=== PATIENT | male | born 1990 | race African-American/Black ===

== ENCOUNTER 2020-12-18 13:27 | Inpatient (IN) | payer OTHER ==
[2020-12-18 14:13] VITALS: BMI 22.8
[2020-12-18] MEDS ORDERED: ONDANSETRON *ODT* 4 MG TABLET SL PRN (14:30)
[2020-12-18] MEDS ORDERED: IBUPROFEN 400 MG TABLET (FP) PO PRN (14:30)
[2020-12-18] MEDS ORDERED: MENTHOL/PHENOL 1 EACH UD MM PRN (14:30)
[2020-12-18] MEDS ORDERED: ACETAMINOPHEN 325 MG TABLET (FP) PO PRN ×2 (14:30)
[2020-12-18] MEDS ORDERED: MAGNESIUM HYDROX 2400MG/30ML ORAL SUSPENSION 30 ML CUP PO PRN (14:30)
[2020-12-18] MEDS ORDERED: NICOTINE POLACRILEX 2 MG GUM BUC PRN (14:30)
[2020-12-18] MEDS ORDERED: MAGNESIUM CITRATE 300 ML BOTTLE PO PRN (14:30)
[2020-12-18] MEDS ORDERED: BISMUTH SUBSALICYLATE 262 MG/15 ML BTL PO PRN (14:30)
[2020-12-18] MEDS ORDERED: METHOCARBAMOL 500 MG TABLET PO PRN (14:30)
[2020-12-18] MEDS ORDERED: MAG HYDROX/AL HYDROX/SIMETH 30 ML UNIT-DOSE CUP PO PRN (14:30)
[2020-12-18] MEDS ORDERED: chlordiazePOXIDE HCL 25 MG CAPSULE PO PRN (14:30)
[2020-12-18] MEDS: chlordiazePOXIDE HCL 25 MG CAPSULE PO SCH ×2 (18:09→22:59)
[2020-12-18] MEDS: hydrOXYzine PAMOATE 25 MG CAPSULE (FP) PO SCH ×2 (18:11→23:01)
[2020-12-18] MEDS: THIAMINE HCL 100 MG TABLET (FP) PO SCH (23:00)
[2020-12-18] MEDS: MELATONIN 5 MG TABLETS PO SCH (23:01)
[2020-12-19] MEDS: chlordiazePOXIDE HCL 25 MG CAPSULE PO SCH ×4 (05:35→22:44)
[2020-12-19] MEDS: hydrOXYzine PAMOATE 25 MG CAPSULE (FP) PO SCH ×5 (05:35→22:44)
[2020-12-19] MEDS: PRENATAL VITAMINS W/ FOLIC ACID TABLET (FP) PO SCH (10:28)
[2020-12-19] MEDS: NICOTINE 7 MG/24 HOURS TOPICAL PATCH TD SCH (10:28)
[2020-12-19 13:12] LABS: POTASSIUM 3.7 mmol/L (3.5-5.1)
[2020-12-19 13:19] LABS: BLOOD UREA NITROGEN 12.4 mg/dL (7-18)
[2020-12-19 13:21] LABS: ALBUMIN 3.3 g/dl (3.4-5.0); BILIRUBIN,TOTAL 0.8 mg/dL (0.2-1); CALCIUM 8.3 mg/dL (8.5-10.1); TOT PROT 8.3 g/dl (6.4-8.2)
[2020-12-19 13:28] LABS: HEMATOCRIT 37.3 % (35.4-49); HEMOGLOBIN 12.4 GM/dL (11.7-16.9); MCH 26.7 pg (25.7-33.7); MCHC 33.3 g/dl (32.0-35.9); MEAN CELL VOLUME 80.1 fl (80-96); MEAN PLT VOLUME 8.6 fl (7.5-11.1); PLATELET COUNT 119 K/MM3 (134-434); RBC 4.65 M/mm3 (4.00-5.60); WHITE BLOOD COUNT 3.4 K/mm3 (4.0-10.0)
[2020-12-19 14:11] LABS: HIV INTERPRETATION NEGATIVE (NEGATIVE)
[2020-12-19] MEDS: THIAMINE HCL 100 MG TABLET (FP) PO SCH (22:44)
[2020-12-19] MEDS: MELATONIN 5 MG TABLETS PO SCH (22:44)
[2020-12-20] MEDS: hydrOXYzine PAMOATE 25 MG CAPSULE (FP) PO SCH ×5 (05:16→22:30)
[2020-12-20] MEDS: chlordiazePOXIDE HCL 25 MG CAPSULE PO SCH ×2 (05:16→10:27)
[2020-12-20] MEDS: PRENATAL VITAMINS W/ FOLIC ACID TABLET (FP) PO SCH (10:27)
[2020-12-20] MEDS: NICOTINE 7 MG/24 HOURS TOPICAL PATCH TD SCH (10:27)
[2020-12-20] MEDS ORDERED: LORazepam 1 MG TABLET PO PRN (11:58)
[2020-12-20] MEDS ORDERED: FLU VACCINE (FLULAVAL) PF 60 MCG/0.5 ML SYRINGE 2020-2021 IM ONE (12:00)
[2020-12-20] MEDS ORDERED: MASKS NR ONE (16:26)
[2020-12-20] MEDS: LORazepam 2 MG TABLET PO SCH ×2 (18:08→22:30)
[2020-12-20] MEDS: THIAMINE HCL 100 MG TABLET (FP) PO SCH (22:30)
[2020-12-20] MEDS: MELATONIN 5 MG TABLETS PO SCH (22:30)
[2020-12-21] MEDS ORDERED: chlordiazePOXIDE HCL 10 MG CAPSULE PO PRN
[2020-12-21] MEDS ORDERED: chlordiazePOXIDE HCL 10 MG CAPSULE PO SCH (05:00)
[2020-12-21] MEDS: hydrOXYzine PAMOATE 25 MG CAPSULE (FP) PO SCH ×5 (05:47→22:17)
[2020-12-21] MEDS: LORazepam 1 MG TABLET PO SCH ×4 (05:48→22:17)
[2020-12-21] MEDS: NICOTINE 7 MG/24 HOURS TOPICAL PATCH TD SCH (11:03)
[2020-12-21] MEDS: PRENATAL VITAMINS W/ FOLIC ACID TABLET (FP) PO SCH (11:03)
[2020-12-21] MEDS: MELATONIN 5 MG TABLETS PO SCH (22:16)
[2020-12-21] MEDS: THIAMINE HCL 100 MG TABLET (FP) PO SCH (22:17)
[2020-12-22] MEDS ORDERED: LORazepam 0.5 MG TABLET PO PRN
[2020-12-22] MEDS ORDERED: chlordiazePOXIDE HCL 10 MG CAPSULE PO SCH (05:00)
[2020-12-22] MEDS: hydrOXYzine PAMOATE 25 MG CAPSULE (FP) PO SCH ×5 (05:33→22:12)
[2020-12-22] MEDS: LORazepam 0.5 MG TABLET PO SCH ×4 (05:33→22:12)
[2020-12-22] MEDS: PRENATAL VITAMINS W/ FOLIC ACID TABLET (FP) PO SCH (10:36)
[2020-12-22] MEDS: NICOTINE 7 MG/24 HOURS TOPICAL PATCH TD SCH (10:37)
[2020-12-22] MEDS: THIAMINE HCL 100 MG TABLET (FP) PO SCH (22:12)
[2020-12-22] MEDS: MELATONIN 5 MG TABLETS PO SCH (22:12)
[2020-12-23] MEDS ORDERED: chlordiazePOXIDE HCL 10 MG CAPSULE PO ONE (05:00)
[2020-12-23] MEDS ORDERED: LORazepam 0.5 MG TABLET PO ONE (05:00)
[2020-12-23] MEDS: hydrOXYzine PAMOATE 25 MG CAPSULE (FP) PO SCH ×2 (05:40→10:52)
[2020-12-23 09:11] VITALS: BP 146/97; PULSE 88; TEMP 97.5
[2020-12-23] MEDS: PRENATAL VITAMINS W/ FOLIC ACID TABLET (FP) PO SCH (10:52)
[2020-12-23] MEDS: NICOTINE 7 MG/24 HOURS TOPICAL PATCH TD SCH (10:52)
== END 2020-12-23 11:15 | disposition other institution (70) | DRG 775 ==
LOC: YASAS 13:27 → Y6N 14:45
PROVIDERS: ADMIT Allergy & Immunology; ATTEND Allergy & Immunology
PROC: HZ2ZZZZ Detoxification Services for Substance Abuse Treatment (ICD-10-PCS; principal; 2020-12-18)
DX: F10.230 Alcohol dependence with withdrawal, uncomplicated (principal); F17.210 Nicotine dependence, cigarettes, uncomplicated; F10.282 Alcohol dependence with alcohol-induced sleep disorder; F10.24 Alcohol dependence with alcohol-induced mood disorder; F29 Unspecified psychosis not due to a substance or known physiological condition; H54.61 Unqualified visual loss, right eye, normal vision left eye; Z59.0 Homelessness; Z56.0 Unemployment, unspecified
CPT/HCPCS: 36415; 80053; 85027; 86780; 87389; 93005; 93010; C9803; G0008; Q2036; U0003

== ENCOUNTER 2020-12-23 11:18 | Inpatient (IN) | payer OTHER ==
[2020-12-23] MEDS ORDERED: guaiFENesin 200 MG/10 ML 10 ML UNIT-DOSE CUPS PO PRN (12:03)
[2020-12-23] MEDS ORDERED: LOPERAMIDE HCL 2 MG CAPSULE PO PRN (12:03)
[2020-12-23] MEDS ORDERED: P-EPHED 60MG/TRIPROLIDI 2.5MG TABLET PO PRN (12:03)
[2020-12-23] MEDS ORDERED: MAGNESIUM HYDROX 2400MG/30ML ORAL SUSPENSION 30 ML CUP PO PRN (12:03)
[2020-12-23] MEDS ORDERED: MENTHOL/PHENOL 1 EACH UD MM PRN (12:03)
[2020-12-23] MEDS ORDERED: MAGNESIUM CITRATE 300 ML BOTTLE PO PRN (12:03)
[2020-12-23] MEDS ORDERED: ACETAMINOPHEN 325 MG TABLET (FP) PO PRN (12:03)
[2020-12-23] MEDS ORDERED: hydrOXYzine PAMOATE 25 MG CAPSULE (FP) PO PRN (12:03)
[2020-12-23] MEDS ORDERED: MAG HYDROX/AL HYDROX/SIMETH 30 ML UNIT-DOSE CUP PO PRN (12:03)
[2020-12-23] MEDS ORDERED: METHOCARBAMOL 500 MG TABLET PO PRN (12:04)
[2020-12-23] MEDS: MINERAL OIL/PETROLAT/WATER TOPICAL CREAM 113 GM JAR TP SCH ×2 (12:50→21:12)
[2020-12-23] MEDS: MELATONIN 5 MG TABLETS PO SCH (21:11)
[2020-12-23] MEDS: THIAMINE HCL 100 MG TABLET (FP) PO SCH (21:11)
[2020-12-24] MEDS: MINERAL OIL/PETROLAT/WATER TOPICAL CREAM 113 GM JAR TP SCH ×2 (10:29→21:35)
[2020-12-24] MEDS: PRENATAL VITAMINS W/ FOLIC ACID TABLET (FP) PO SCH (10:29)
[2020-12-24] MEDS: THIAMINE HCL 100 MG TABLET (FP) PO SCH (21:35)
[2020-12-24] MEDS: MELATONIN 5 MG TABLETS PO SCH (21:35)
[2020-12-25] MEDS: PRENATAL VITAMINS W/ FOLIC ACID TABLET (FP) PO SCH (10:20)
[2020-12-25] MEDS: MINERAL OIL/PETROLAT/WATER TOPICAL CREAM 113 GM JAR TP SCH ×2 (10:21→21:12)
[2020-12-25] MEDS: THIAMINE HCL 100 MG TABLET (FP) PO SCH (21:11)
[2020-12-25] MEDS: MELATONIN 5 MG TABLETS PO SCH (21:11)
[2020-12-26] MEDS ORDERED: cloNIDine HCL 0.1 MG TABLET PO ONE (07:45)
[2020-12-26] MEDS: MINERAL OIL/PETROLAT/WATER TOPICAL CREAM 113 GM JAR TP SCH ×2 (10:18→21:27)
[2020-12-26] MEDS: PRENATAL VITAMINS W/ FOLIC ACID TABLET (FP) PO SCH (10:18)
[2020-12-26] MEDS: MELATONIN 5 MG TABLETS PO SCH (21:26)
[2020-12-26] MEDS: THIAMINE HCL 100 MG TABLET (FP) PO SCH (21:26)
[2020-12-27] MEDS: PRENATAL VITAMINS W/ FOLIC ACID TABLET (FP) PO SCH (10:03)
[2020-12-27] MEDS: MINERAL OIL/PETROLAT/WATER TOPICAL CREAM 113 GM JAR TP SCH ×2 (10:03→21:07)
[2020-12-27] MEDS: THIAMINE HCL 100 MG TABLET (FP) PO SCH (21:06)
[2020-12-27] MEDS: MELATONIN 5 MG TABLETS PO SCH (21:06)
[2020-12-28] MEDS: PRENATAL VITAMINS W/ FOLIC ACID TABLET (FP) PO SCH (10:29)
[2020-12-28] MEDS: MINERAL OIL/PETROLAT/WATER TOPICAL CREAM 113 GM JAR TP SCH ×2 (10:29→21:35)
[2020-12-28 14:53] LABS: POTASSIUM 4.3 mmol/L (3.5-5.1)
[2020-12-28 14:56] LABS: CALCIUM 8.5 mg/dL (8.5-10.1)
[2020-12-28 14:57] LABS: ALBUMIN 3.2 g/dl (3.4-5.0); BLOOD UREA NITROGEN 14.7 mg/dL (7-18)
[2020-12-28 15:00] LABS: CREATININE 1.1 mg/dL (0.55-1.3)
[2020-12-28 15:01] LABS: BILIRUBIN,TOTAL 0.7 mg/dL (0.2-1); TOT PROT 7.5 g/dl (6.4-8.2)
[2020-12-28] MEDS: MELATONIN 5 MG TABLETS PO SCH (21:34)
[2020-12-28] MEDS: THIAMINE HCL 100 MG TABLET (FP) PO SCH (21:34)
[2020-12-29] MEDS: MINERAL OIL/PETROLAT/WATER TOPICAL CREAM 113 GM JAR TP SCH ×2 (10:20→21:06)
[2020-12-29] MEDS: LISINOPRIL 5 MG TABLET PO SCH (10:20)
[2020-12-29] MEDS: PRENATAL VITAMINS W/ FOLIC ACID TABLET (FP) PO SCH (10:21)
[2020-12-29] MEDS: THIAMINE HCL 100 MG TABLET (FP) PO SCH (21:05)
[2020-12-29] MEDS: MELATONIN 5 MG TABLETS PO SCH (21:06)
[2020-12-30] MEDS: LISINOPRIL 5 MG TABLET PO SCH (10:09)
[2020-12-30] MEDS: MINERAL OIL/PETROLAT/WATER TOPICAL CREAM 113 GM JAR TP SCH ×2 (10:09→21:45)
[2020-12-30] MEDS: PRENATAL VITAMINS W/ FOLIC ACID TABLET (FP) PO SCH (10:09)
[2020-12-30] MEDS: MELATONIN 5 MG TABLETS PO SCH (21:45)
[2020-12-30] MEDS: THIAMINE HCL 100 MG TABLET (FP) PO SCH (21:45)
[2020-12-31] MEDS ORDERED: cloNIDine HCL 0.1 MG TABLET PO ONE (06:43)
[2020-12-31] MEDS: PRENATAL VITAMINS W/ FOLIC ACID TABLET (FP) PO SCH (10:52)
[2020-12-31] MEDS: MINERAL OIL/PETROLAT/WATER TOPICAL CREAM 113 GM JAR TP SCH ×2 (10:53→21:05)
[2020-12-31] MEDS: LISINOPRIL 5 MG TABLET PO SCH (10:53)
[2020-12-31] MEDS: THIAMINE HCL 100 MG TABLET (FP) PO SCH (21:05)
[2020-12-31] MEDS: MELATONIN 5 MG TABLETS PO SCH (21:05)
[2021-01-01] MEDS ORDERED: LISINOPRIL 5 MG TABLET PO SCH (06:00)
[2021-01-01] MEDS ORDERED: LISINOPRIL 10 MG TABLET PO SCH (06:00)
[2021-01-01] MEDS: MINERAL OIL/PETROLAT/WATER TOPICAL CREAM 113 GM JAR TP SCH ×2 (10:43→21:20)
[2021-01-01] MEDS: PRENATAL VITAMINS W/ FOLIC ACID TABLET (FP) PO SCH (10:43)
[2021-01-01] MEDS: LISINOPRIL 20 MG TABLET PO SCH (10:51)
[2021-01-01] MEDS ORDERED: cloNIDine HCL 0.1 MG TABLET PO ONE (11:00)
[2021-01-01] MEDS: THIAMINE HCL 100 MG TABLET (FP) PO SCH (21:20)
[2021-01-01] MEDS: MELATONIN 5 MG TABLETS PO SCH (21:20)
[2021-01-02] MEDS: LISINOPRIL 20 MG TABLET PO SCH (06:02)
[2021-01-02] MEDS: IBUPROFEN 400 MG TABLET (FP) PO PRN (07:38)
[2021-01-02] MEDS: PRENATAL VITAMINS W/ FOLIC ACID TABLET (FP) PO SCH (10:06)
[2021-01-02] MEDS: MINERAL OIL/PETROLAT/WATER TOPICAL CREAM 113 GM JAR TP SCH ×2 (10:06→21:08)
[2021-01-02] MEDS: THIAMINE HCL 100 MG TABLET (FP) PO SCH (21:08)
[2021-01-02] MEDS: MELATONIN 5 MG TABLETS PO SCH (21:08)
[2021-01-03] MEDS: LISINOPRIL 20 MG TABLET PO SCH (06:07)
[2021-01-03] MEDS: IBUPROFEN 400 MG TABLET (FP) PO PRN (06:07)
[2021-01-03] MEDS: PRENATAL VITAMINS W/ FOLIC ACID TABLET (FP) PO SCH (10:16)
[2021-01-03] MEDS: MINERAL OIL/PETROLAT/WATER TOPICAL CREAM 113 GM JAR TP SCH ×2 (10:17→21:46)
[2021-01-03] MEDS: THIAMINE HCL 100 MG TABLET (FP) PO SCH (21:45)
[2021-01-03] MEDS: MELATONIN 5 MG TABLETS PO SCH (21:45)
[2021-01-04] MEDS: LISINOPRIL 20 MG TABLET PO SCH (06:08)
[2021-01-04] MEDS: PRENATAL VITAMINS W/ FOLIC ACID TABLET (FP) PO SCH (10:33)
[2021-01-04] MEDS: MINERAL OIL/PETROLAT/WATER TOPICAL CREAM 113 GM JAR TP SCH ×2 (10:34→21:06)
[2021-01-04] MEDS: THIAMINE HCL 100 MG TABLET (FP) PO SCH (21:06)
[2021-01-04] MEDS: MELATONIN 5 MG TABLETS PO SCH (21:06)
[2021-01-05] MEDS: LISINOPRIL 20 MG TABLET PO SCH (06:25)
[2021-01-05] MEDS: PRENATAL VITAMINS W/ FOLIC ACID TABLET (FP) PO SCH (10:32)
[2021-01-05] MEDS: MINERAL OIL/PETROLAT/WATER TOPICAL CREAM 113 GM JAR TP SCH ×2 (10:32→21:50)
[2021-01-05] MEDS: MELATONIN 5 MG TABLETS PO SCH (21:49)
[2021-01-05] MEDS: THIAMINE HCL 100 MG TABLET (FP) PO SCH (21:49)
[2021-01-06] MEDS: LISINOPRIL 20 MG TABLET PO SCH (06:21)
[2021-01-06] MEDS ORDERED: HYDROCHLOROTHIAZIDE 12.5 MG CAPSULE (FP) PO SCH (10:30)
[2021-01-06] MEDS: PRENATAL VITAMINS W/ FOLIC ACID TABLET (FP) PO SCH (10:30)
[2021-01-06] MEDS: MINERAL OIL/PETROLAT/WATER TOPICAL CREAM 113 GM JAR TP SCH ×2 (10:31→21:02)
[2021-01-06 11:21] VITALS: PULSE 75
[2021-01-06] MEDS: MELATONIN 5 MG TABLETS PO SCH (21:02)
[2021-01-06] MEDS: THIAMINE HCL 100 MG TABLET (FP) PO SCH (21:02)
[2021-01-07] MEDS: LISINOPRIL 20 MG TABLET PO SCH (06:02)
[2021-01-07 07:17] VITALS: BP 156/100; TEMP 97.9
== END 2021-01-07 09:08 | disposition home or self-care (01) | DRG 772 ==
LOC: YASAS 11:18 → Y3W 11:19
PROVIDERS: ADMIT Allergy & Immunology; ATTEND Allergy & Immunology
PROC: HZ42ZZZ Group Counseling for Substance Abuse Treatment, Cognitive-Behavioral (ICD-10-PCS; principal; 2020-12-23)
DX: F10.20 Alcohol dependence, uncomplicated (principal); F17.210 Nicotine dependence, cigarettes, uncomplicated; F20.9 Schizophrenia, unspecified; I10 Essential (primary) hypertension; H54.61 Unqualified visual loss, right eye, normal vision left eye; R74.01 Elevation of levels of liver transaminase levels
CPT/HCPCS: 36415; 80053; C9803; J0735; U0003

== ENCOUNTER 2023-08-03 12:59 | Inpatient (IN) | payer OTHER ==
[2023-08-03 13:49] VITALS: BMI 22.3
[2023-08-03] MEDS ORDERED: IBUPROFEN 600 MG TABLET (FP) PO PRN (14:17)
[2023-08-03] MEDS ORDERED: MAG HYDROX/AL HYDROX/SIMETH 30 ML UNIT-DOSE CUP PO PRN (14:17)
[2023-08-03] MEDS ORDERED: NALOXONE HCL (KLOXXADO) 8 MG SPRAY NS PRN (14:17)
[2023-08-03] MEDS ORDERED: IBUPROFEN 400 MG TABLET (FP) PO PRN (14:17)
[2023-08-03] MEDS ORDERED: DICYCLOMINE HCL 10 MG CAPSULE PO PRN (14:17)
[2023-08-03] MEDS ORDERED: BISMUTH SUBSALICYLATE 262 MG/15 ML BTL PO PRN (14:17)
[2023-08-03] MEDS ORDERED: NALOXONE HCL 0.4 MG/ML VIAL IM PRN (14:17)
[2023-08-03] MEDS ORDERED: BENZONATATE 200 MG CAPSULE PO PRN (14:17)
[2023-08-03] MEDS ORDERED: ONDANSETRON *ODT* 4 MG TABLET SL PRN (14:17)
[2023-08-03] MEDS ORDERED: LORazepam 1 MG TABLET PO PRN (14:17)
[2023-08-03] MEDS ORDERED: guaiFENesin 600 MG TABLET.ER (FP) PO PRN (14:17)
[2023-08-03] MEDS ORDERED: BENZOCAINE/MENTHOL (CHLORASEPTIC ) LOZENGE MM PRN (14:17)
[2023-08-03] MEDS ORDERED: POLYETHYLENE GLYCOL (HEALTHYLAX) 3350 17 GM PACKET PO PRN (14:17)
[2023-08-03] MEDS ORDERED: ACETAMINOPHEN 325 MG TABLET (FP) PO PRN (14:17)
[2023-08-03] MEDS ORDERED: LOPERAMIDE HCL 2 MG CAPSULE PO PRN (14:17)
[2023-08-03] MEDS ORDERED: MAGNESIUM HYDROX 2400MG/30ML ORAL SUSPENSION 30 ML CUP PO PRN (14:17)
[2023-08-03] MEDS ORDERED: PRENATAL VITAMINS W/ FOLIC ACID TABLET (FP) PO ONE (15:35)
[2023-08-03] MEDS ORDERED: LISINOPRIL 10 MG TABLET ONE (15:35)
[2023-08-03] MEDS: PRENATAL VITAMINS W/ FOLIC ACID TABLET (FP) PO SCH (15:37)
[2023-08-03] MEDS: LISINOPRIL 20 MG TABLET PO SCH (15:37)
[2023-08-03] MEDS: LORazepam 2 MG TABLET PO SCH ×2 (17:27→22:34)
[2023-08-03] MEDS: MELATONIN 5 MG TABLETS PO SCH (22:33)
[2023-08-03] MEDS: THIAMINE HCL 100 MG TABLET (FP) PO SCH (22:34)
[2023-08-04] MEDS: LORazepam 2 MG TABLET PO SCH ×4 (05:25→22:56)
[2023-08-04] MEDS: PRENATAL VITAMINS W/ FOLIC ACID TABLET (FP) PO SCH (10:38)
[2023-08-04] MEDS: LISINOPRIL 20 MG TABLET PO SCH (10:38)
[2023-08-04 11:01] LABS: POTASSIUM 4.1 mmol/L (3.5-5.1)
[2023-08-04 11:08] LABS: BLOOD UREA NITROGEN 11.6 mg/dL (7-18); CALCIUM 8.4 mg/dL (8.5-10.1)
[2023-08-04 11:09] LABS: ALBUMIN 3.1 g/dl (3.4-5.0)
[2023-08-04 11:14] LABS: BILIRUBIN,TOTAL 0.6 mg/dL (0.2-1); TOT PROT 8.4 g/dl (6.4-8.2)
[2023-08-04 11:41] LABS: HEMATOCRIT 38.8 % (35.4-49); MCH 26.7 pg (25.7-33.7); MCHC 33.5 g/dl (32.0-35.9); MEAN CELL VOLUME 79.6 fl (80-96); MEAN PLT VOLUME 8.3 fl (7.5-11.1); PLATELET COUNT 165 10^3/uL (134-434); RBC 4.88 M/mm3 (4.00-5.60); RDW 14.2 % (11.9-15.9); WHITE BLOOD COUNT 4.4 K/mm3 (4.0-10.0)
[2023-08-04] MEDS: THIAMINE HCL 100 MG TABLET (FP) PO SCH (22:56)
[2023-08-04] MEDS: MELATONIN 5 MG TABLETS PO SCH (22:56)
[2023-08-04] MEDS: METHOCARBAMOL 500 MG TABLET PO PRN (22:57)
[2023-08-04] MEDS: cloNIDine HCL 0.1 MG TABLET PO PRN (23:52)
[2023-08-05] MEDS: LORazepam 1 MG TABLET PO SCH ×4 (05:55→23:00)
[2023-08-05] MEDS: METHOCARBAMOL 500 MG TABLET PO PRN (10:33)
[2023-08-05] MEDS: PRENATAL VITAMINS W/ FOLIC ACID TABLET (FP) PO SCH (10:33)
[2023-08-05] MEDS: hydrOXYzine PAMOATE 25 MG CAPSULE (FP) PO PRN (10:33)
[2023-08-05] MEDS: LISINOPRIL 20 MG TABLET PO SCH (10:35)
[2023-08-05 11:57] LABS: POTASSIUM 3.6 mmol/L (3.5-5.1)
[2023-08-05 11:59] LABS: CALCIUM 8.5 mg/dL (8.5-10.1)
[2023-08-05 12:04] LABS: BLOOD UREA NITROGEN 10.7 mg/dL (7-18)
[2023-08-05 12:05] LABS: TOT PROT 7.9 g/dl (6.4-8.2)
[2023-08-05] MEDS: cloNIDine HCL 0.1 MG TABLET PO PRN ×2 (15:08→21:13)
[2023-08-05] MEDS: THIAMINE HCL 100 MG TABLET (FP) PO SCH (23:00)
[2023-08-05] MEDS: MELATONIN 5 MG TABLETS PO SCH (23:00)
[2023-08-06] MEDS ORDERED: LORazepam 0.5 MG TABLET PO PRN
[2023-08-06] MEDS: LORazepam 0.5 MG TABLET PO SCH ×4 (05:38→22:26)
[2023-08-06] MEDS: METHOCARBAMOL 500 MG TABLET PO PRN ×2 (10:47→22:27)
[2023-08-06] MEDS: LISINOPRIL 20 MG TABLET PO SCH (10:47)
[2023-08-06] MEDS: PRENATAL VITAMINS W/ FOLIC ACID TABLET (FP) PO SCH (10:52)
[2023-08-06] MEDS: cloNIDine HCL 0.1 MG TABLET PO PRN (21:02)
[2023-08-06] MEDS: MELATONIN 5 MG TABLETS PO SCH (22:26)
[2023-08-06] MEDS: THIAMINE HCL 100 MG TABLET (FP) PO SCH (22:26)
[2023-08-06] MEDS: hydrOXYzine PAMOATE 25 MG CAPSULE (FP) PO PRN (22:27)
[2023-08-07] MEDS: hydrOXYzine PAMOATE 25 MG CAPSULE (FP) PO PRN (02:38)
[2023-08-07] MEDS ORDERED: LORazepam 0.5 MG TABLET PO ONE (05:00)
[2023-08-07] MEDS: PRENATAL VITAMINS W/ FOLIC ACID TABLET (FP) PO SCH (10:00)
[2023-08-07] MEDS ORDERED: LISINOPRIL 10 MG TABLET PO SCH (10:00)
[2023-08-07] MEDS: cloNIDine HCL 0.1 MG TABLET PO PRN (17:40)
[2023-08-07] MEDS ORDERED: LISINOPRIL 10 MG TABLET PO ONE (21:09)
[2023-08-07] MEDS: METHOCARBAMOL 500 MG TABLET PO PRN (21:41)
[2023-08-07] MEDS: MELATONIN 5 MG TABLETS PO SCH (21:41)
[2023-08-07] MEDS: THIAMINE HCL 100 MG TABLET (FP) PO SCH (21:41)
[2023-08-08] MEDS: cloNIDine HCL 0.1 MG TABLET PO PRN ×2 (10:32→17:20)
[2023-08-08] MEDS: LISINOPRIL 20 MG TABLET PO SCH (10:32)
[2023-08-08] MEDS: PRENATAL VITAMINS W/ FOLIC ACID TABLET (FP) PO SCH (10:32)
[2023-08-08] MEDS ORDERED: amLODIPine BESYLATE 10 MG TABLET (FP) PO ONE (21:31)
[2023-08-08] MEDS: MELATONIN 5 MG TABLETS PO SCH (22:26)
[2023-08-08] MEDS: THIAMINE HCL 100 MG TABLET (FP) PO SCH (22:27)
[2023-08-08] MEDS: hydrOXYzine PAMOATE 25 MG CAPSULE (FP) PO PRN (22:27)
[2023-08-09 07:14] VITALS: RESP 17
[2023-08-09] MEDS: LISINOPRIL 20 MG TABLET PO SCH (09:31)
[2023-08-09] MEDS: PRENATAL VITAMINS W/ FOLIC ACID TABLET (FP) PO SCH (09:31)
[2023-08-09 09:44] VITALS: BP 141/87; PULSE 65; TEMP 97.7
[2023-08-09] MEDS ORDERED: amLODIPine BESYLATE 10 MG TABLET (FP) PO SCH (10:00)
== END 2023-08-09 12:40 | disposition home or self-care (01) | DRG 774 ==
LOC: YASAS 12:59 → Y6N 16:12
PROVIDERS: ADMIT Allergy & Immunology; ATTEND Surgery
PROC: HZ2ZZZZ Detoxification Services for Substance Abuse Treatment (ICD-10-PCS; principal; 2023-08-03)
DX: F10.230 Alcohol dependence with withdrawal, uncomplicated (principal); F14.20 Cocaine dependence, uncomplicated; F15.10 Other stimulant abuse, uncomplicated; F17.210 Nicotine dependence, cigarettes, uncomplicated; U07.1 COVID-19; H54.40 Blindness, one eye, unspecified eye; I10 Essential (primary) hypertension; R16.0 Hepatomegaly, not elsewhere classified; Z59.00 Homelessness unspecified; Z56.0 Unemployment, unspecified
CPT/HCPCS: 36415; 80053; 85027; 86780; 87635